=== PATIENT | female | born 1970 | race Two or more races ===

== ENCOUNTER → 2021-05-10 | Emergency (ER) | payer OTHER ==
[~2021-05-10] VITALS: Ht 154.9 cm; Wt 59.0 kg
[~2021-05-10] MED LIST: SYNTHROID50 MCG PO
== END | disposition home or self-care (01) ==
LOC: ER 11:36
DX: S90.32XA Contusion of left foot, initial encounter (principal); W10.8XXA Fall (on) (from) other stairs and steps, initial encounter; Y93.01 Activity, walking, marching and hiking; Y92.512 Supermarket, store or market as the place of occurrence of the external cause; Y99.8 Other external cause status

== ENCOUNTER → 2021-06-22 | Outpatient (CLI) | payer OTHER | END | disposition home or self-care (01) | LOC: MAMO-SONO 07:30 → SONOGRAMA 07:44 | PROVIDERS: ATTEND Internal Medicine | DX: R10.84 Generalized abdominal pain (principal); M25.559 Pain in unspecified hip ==

== ENCOUNTER 2021-11-16 18:23 | Inpatient (IN) | payer OTHER ==
[~2021-11-16] VITALS: Ht 152.4 cm; Wt 59.0 kg
[2021-11-16] MEDS ORDERED: VALSARTAN80 MG PO (18:30)
[2021-11-23] MEDS ORDERED: LEVOTHYROXINE50 MCG PO (14:37)
[2021-11-23] MEDS ORDERED: AMOX-CLAV 875-1 EACH PO (14:37)
[2021-11-23] MEDS ORDERED: TAMS0.4C PO (14:37)
[2021-11-23] MEDS ORDERED: INTESTINEX680 M1 PO (14:37)
== END 2021-11-23 15:50 | disposition home or self-care (01) | DRG 661 ==
LOC: ER 18:23 → SEC-K 11-17 11:09 → MEDI 11-17 11:09
PROVIDERS: Surgery; ADMIT Internal Medicine; ATTEND Internal Medicine
PROC: BW21ZZZ Computerized Tomography (CT Scan) of Abdomen and Pelvis (ICD-10-PCS; 2021-11-16)
PROC: BT4JZZZ Ultrasonography of Kidneys and Bladder (ICD-10-PCS; 2021-11-17)
PROC: 4A12X4Z Monitoring of Cardiac Electrical Activity, External Approach (ICD-10-PCS; 2021-11-18)
PROC: 0T768DZ Dilation of Right Ureter with Intraluminal Device, Via Natural or Artificial Opening Endoscopic (ICD-10-PCS; principal; 2021-11-18 07:00)
PROC: BW2FZZZ Computerized Tomography (CT Scan) of Neck (ICD-10-PCS; 2021-11-20)
DX: N13.6 Pyonephrosis (principal); B96.1 Klebsiella pneumoniae [K. pneumoniae] as the cause of diseases classified elsewhere; E86.0 Dehydration; M54.2 Cervicalgia; Z20.822 Contact with and (suspected) exposure to COVID-19; I10 Essential (primary) hypertension; E03.8 Other specified hypothyroidism

== ENCOUNTER 2021-12-18 08:11 | Outpatient (CLI) | payer OTHER ==
[~2021-12-18 08:11] MED LIST changes: +AMOX-CLAV 875-1 EACH PO; +INTESTINEX680 M1 PO; +LEVOTHYROXINE50 MCG PO; +TAMS0.4C PO; +VALSARTAN80 MG PO
== END 2021-12-18 08:24 | disposition home or self-care (01) ==
LOC: RAD 08:11
PROVIDERS: ATTEND Surgery
DX: N20.0 Calculus of kidney (principal)

== ENCOUNTER 2022-03-28 11:32 | Outpatient (CLI) | payer OTHER | END 2022-03-28 11:46 | disposition home or self-care (01) | LOC: SONOGRAMA 11:32 | PROVIDERS: ATTEND Surgery | DX: N20.1 Calculus of ureter (principal) ==

== ENCOUNTER 2023-01-10 13:18 | Outpatient (CLI) | payer OTHER | END 2023-01-10 13:23 | disposition home or self-care (01) | LOC: NUCLEAR 13:18 | PROVIDERS: ATTEND Otolaryngology | DX: E21.0 Primary hyperparathyroidism (principal); M81.0 Age-related osteoporosis without current pathological fracture ==

== ENCOUNTER 2023-04-21 05:30 | Inpatient (IN) | payer OTHER ==
[~2023-04-21] VITALS: Ht 154.9 cm; Wt 59.0 kg
== END 2023-04-22 11:59 | disposition home or self-care (01) | DRG 627 ==
LOC: CIR.AMB 05:30 → O/R 13:33 → SURH 13:33
PROVIDERS: ADMIT Otolaryngology; ATTEND Otolaryngology
PROC: 0GBM0ZZ Excision of Left Superior Parathyroid Gland, Open Approach (ICD-10-PCS; 2023-04-21)
PROC: 0GBN0ZZ Excision of Right Inferior Parathyroid Gland, Open Approach (ICD-10-PCS; principal; 2023-04-21 07:00)
DX: D35.1 Benign neoplasm of parathyroid gland (principal); Z20.822 Contact with and (suspected) exposure to COVID-19

== ENCOUNTER 2023-07-15 13:32 | Outpatient (CLI) | payer OTHER | END 2023-07-15 13:44 | disposition home or self-care (01) | LOC: MAMO-SONO 13:32 | PROVIDERS: ATTEND Surgery | DX: N63.21 Unspecified lump in the left breast, upper outer quadrant (principal); N60.12 Diffuse cystic mastopathy of left breast; N60.11 Diffuse cystic mastopathy of right breast ==

== ENCOUNTER 2023-09-04 07:28 | Outpatient (CLI) | payer OTHER | END 2023-09-04 07:41 | disposition home or self-care (01) | LOC: NUCLEAR 07:28 | PROVIDERS: ATTEND Internal Medicine Gastroenterology | DX: R10.84 Generalized abdominal pain (principal) ==

== ENCOUNTER → 2023-11-27 | Outpatient (CLI) | payer OTHER | END | disposition home or self-care (01) | LOC: TOM 08:25 | PROVIDERS: ATTEND Otolaryngology | DX: E21.0 Primary hyperparathyroidism (principal) ==

== ENCOUNTER 2024-01-08 08:32 | Outpatient (CLI) | payer OTHER | END 2024-01-08 08:38 | disposition home or self-care (01) | LOC: SONOGRAMA 08:32 | PROVIDERS: ATTEND Student in an Organized Health Care Education/Training Program | DX: E04.1 Nontoxic single thyroid nodule (principal) ==

== ENCOUNTER 2024-07-31 17:34 | Emergency (ER) | payer OTHER ==
[~2024-07-31] VITALS: Ht 154.9 cm; Wt 65.8 kg
[2024-07-31] MEDS ORDERED: ENALAPRILAT DIHYDRATE 1.25 MG/ML VIAL IV ONE (19:15)
[2024-07-31 20:08] LABS: HEMATOCRIT 44.9 % (36.0-45.00); HEMOGLOBIN 15.2 g/dL (12.0-15.00); MEAN CELL VOLUME 87.2 fL (80.00-100.00); MEAN CORPUSCULAR HEMOGLOBIN 29.5 pg (27.00-32.0); MEAN CORPUSCULAR HGB CONC 33.8 g/dl (32.0-36.0); PLATELET COUNT 267 K/uL (150-450); RED BLOOD COUNT 5.15 M/uL (4.00-6.00); RED CELL DISTRIBUTION WIDTH 13.5 % (11.5-14.5)
[2024-07-31 20:32] LABS: URINE APPEARANCE Clear; URINE BILIRRUBIN Negative (NEGATIVE); URINE BLOOD Negative; URINE COLOR Yellow; URINE GLUCOSE Negative (NEGATIVE); URINE KETONE Negative (NEGATIVE); URINE LEUKOCYTE Negative; URINE NITRATE Negative; URINE PROTEIN Negative (NEGATIVE); URINE UROBILINOGEN 0.2 E.U./dl
[2024-07-31 20:34] LABS: ALBUMIN 4.6 gm/dL (3.4-5.0); BILIRUBIN TOTAL 0.56 mg/dL (0.3-1.2); CALCIUM 10.1 mg/dL (8.5-10.1); CREATININE SERUM 0.54 mg/dL (0.55-1.02); GFR 117.65; GLOBULINA 3.8 G/DL (2.4-3.5); POTASSIUM 4.05 mEq/L (3.5-5.1); TOTAL PROTEIN 8.4 gm/dL (6.4-8.2)
[2024-07-31 20:36] LABS: URINE RBC 4.1 uL (0.0-20.8)
[2024-07-31 21:30] LABS: URINE BACTERIA 1.2 uL (0.0-1933); URINE EPITHELIAL CELLS 0.3 uL (0.0-38.8); URINE WBC 1.2 uL (0.0-23.2)
[2024-07-31] MEDS ORDERED: ANTIVERT25 M2 PO (22:16)
== END 2024-07-31 22:40 | disposition home or self-care (01) ==
LOC: ER 17:36
PROVIDERS: Nurse Practitioner Family
DX: I10 Essential (primary) hypertension (principal); E03.8 Other specified hypothyroidism; E78.49 Other hyperlipidemia; Z87.442 Personal history of urinary calculi; R42 Dizziness and giddiness
CPT/HCPCS: 36415; 70450; 71046; 93005; 96365; 99284; J3490

== ENCOUNTER 2025-02-18 09:35 | Outpatient (CLI) | payer OTHER ==
[~2025-02-18 09:35] MED LIST changes: +ANTIVERT25 M2 PO
== END 2025-02-18 09:46 | disposition home or self-care (01) ==
LOC: SONOGRAMA 09:35
DX: R10.13 Epigastric pain (principal)